=== PATIENT | female | born 1960 | race Caucasian/White ===

== ENCOUNTER 2016-11-01 12:56 | Outpatient (CLI) | payer BC | END 2016-11-01 12:57 | disposition home or self-care (01) | LOC: MADLABBHPM 12:56 | PROVIDERS: ATTEND Family Medicine | DX: K52.9 Noninfective gastroenteritis and colitis, unspecified (principal) | CPT/HCPCS: 36415; 83630; 87015; 87045; 87046; 87081; 87324; 87449; 87899 ==